=== PATIENT | male | born 1950 | race Two or more races ===

== ENCOUNTER 2018-02-07 12:39 | Emergency (ER) | payer OTHER ==
[~2018-02-07] VITALS: Ht 157.5 cm; Wt 113.4 kg
[~2018-02-07 12:39] MED LIST: Apresoline 20MG Vial IV; CARDIZEM CD 240 MG PO; CARVEDILOL3.125 MG; CLONAZEPAM1 MG; COREG CR10 MG; COUMADIN1 MG PO; COUMADIN5 MG; COUMADIN5 MG PO; COUMAdin PO; Coreg PO; DIGOXIN125 MCG; HALOPERIDOL2 MG; LASIX20 MG PO; LEVOTHYROXINE200 MCG PO; TENORMIN100 MG; TOPROL XL100 MG; TRAMADOL HCL50 MG; Toprol Xl 50MG TAB PO; ZYLOPRIM300 MG
== END 2018-02-07 18:18 | disposition home or self-care (01) ==
LOC: ER 12:39
DX: G89.11 Acute pain due to trauma (principal); M54.5 Low back pain; R10.32 Left lower quadrant pain; J11.1 Influenza due to unidentified influenza virus with other respiratory manifestations

== ENCOUNTER 2018-03-21 10:14 | Emergency (ER) | payer OTHER ==
[~2018-03-21] VITALS: Ht 190.5 cm; Wt 113.4 kg
[2018-03-21] MEDS ORDERED: TUSSI PRES-B L120 M1 PO (14:09)
[2018-03-21] MEDS ORDERED: TESSALON PERLE100 MG PO (14:09)
[2018-03-21] MEDS ORDERED: AMOX1TAB5 PO (14:11)
== END 2018-03-21 14:13 | disposition home or self-care (01) ==
LOC: ER 10:14
DX: B34.9 Viral infection, unspecified (principal); J11.1 Influenza due to unidentified influenza virus with other respiratory manifestations

== ENCOUNTER 2018-09-01 12:09 | Inpatient (IN) | payer OTHER ==
[~2018-09-01] VITALS: Ht 190.5 cm; Wt 104.3 kg
[~2018-09-01 12:09] MED LIST changes: +AMOX1TAB5 PO; +TESSALON PERLE100 MG PO; +TUSSI PRES-B L120 M1 PO
[2018-09-01] MEDS ORDERED: BUDESONIDE0.5 GM IH (12:36)
[2018-09-01] MEDS ORDERED: XOPENEX0.63 MG/3 IH (12:37)
== END 2018-09-07 13:35 | DRG 194 ==
LOC: ER 12:09 → MEDJ 20:24
PROVIDERS: ADMIT Internal Medicine
PROC: 3E0F7GC Introduction of Other Therapeutic Substance into Respiratory Tract, Via Natural or Artificial Opening (ICD-10-PCS; principal; 2018-09-01)
PROC: 4A033R1 Measurement of Arterial Saturation, Peripheral, Percutaneous Approach (ICD-10-PCS; 2018-09-01)
DX: J10.00 Influenza due to other identified influenza virus with unspecified type of pneumonia (principal); J98.11 Atelectasis; J44.1 Chronic obstructive pulmonary disease with (acute) exacerbation; I50.9 Heart failure, unspecified; I11.0 Hypertensive heart disease with heart failure; I48.2 Chronic atrial fibrillation; Z79.01 Long term (current) use of anticoagulants; E03.8 Other specified hypothyroidism; G47.33 Obstructive sleep apnea (adult) (pediatric); I12.9 Hypertensive chronic kidney disease with stage 1 through stage 4 chronic kidney disease, or unspecified chronic kidney disease; N18.2 Chronic kidney disease, stage 2 (mild)

== ENCOUNTER 2018-11-21 12:48 | Emergency (ER) | payer OTHER ==
[~2018-11-21] VITALS: Ht 190.5 cm; Wt 108.9 kg
[~2018-11-21 12:48] MED LIST changes: +BUDESONIDE0.5 GM IH; +XOPENEX0.63 MG/3 IH
[2018-11-21] MEDS ORDERED: LIPITOR20 MG PO (13:36)
[2018-11-21] MEDS ORDERED: CARDIZEM CD180 M1 PO (13:36)
[2018-11-21] MEDS ORDERED: XARELTO20 MG PO (13:39)
[2018-11-21] MEDS ORDERED: ZOLOFT25 MG PO (13:40)
[2018-11-21] MEDS ORDERED: SYNTHROID88 MCG PO (13:41)
[2018-11-21] MEDS ORDERED: BACLOFEN10 MG PO (13:41)
== END 2018-11-21 16:22 | disposition home or self-care (01) ==
LOC: ER 12:48
DX: J11.1 Influenza due to unidentified influenza virus with other respiratory manifestations (principal)

== ENCOUNTER 2020-11-22 10:16 | Inpatient (IN) | payer OTHER ==
[~2020-11-22] VITALS: Ht 188 cm
[~2020-11-22 10:16] MED LIST changes: +BACLOFEN10 MG PO; +CARDIZEM CD180 M1 PO; +LIPITOR20 MG PO; +SYNTHROID88 MCG PO; +XARELTO20 MG PO; +ZOLOFT25 MG PO
[2020-11-22] MEDS ORDERED: FOLIC ACID1 MG PO (10:25)
[2020-11-22] MEDS ORDERED: AMIODARONE HCL200 MG NGT (10:26)
[2020-11-22] MEDS ORDERED: FUROSEMIDE40 MG PO (10:26)
[2020-12-04] MEDS ORDERED: ELIQUIS5 MG PO (15:43)
[2020-12-04] MEDS ORDERED: DILTIAZEM ER120 M2 PO (15:44)
[2020-12-04] MEDS ORDERED: TAMS0.4C PO (19:14)
== END 2020-12-04 21:56 | disposition home or self-care (01) | DRG 378 ==
LOC: ER 10:16 → ICU-2 18:53 → ICU 18:53 → SURH 11-28 18:57
PROVIDERS: ADMIT Internal Medicine; ATTEND Internal Medicine
PROC: 3E0F7SF Introduction of Other Gas into Respiratory Tract, Via Natural or Artificial Opening (ICD-10-PCS; 2020-11-22)
PROC: 30233N1 Transfusion of Nonautologous Red Blood Cells into Peripheral Vein, Percutaneous Approach (ICD-10-PCS; principal; 2020-11-23)
PROC: 0DJ08ZZ Inspection of Upper Intestinal Tract, Via Natural or Artificial Opening Endoscopic (ICD-10-PCS; 2020-11-26)
PROC: 0DBM8ZX Excision of Descending Colon, Via Natural or Artificial Opening Endoscopic, Diagnostic (ICD-10-PCS; 2020-11-27)
PROC: 0DBN8ZX Excision of Sigmoid Colon, Via Natural or Artificial Opening Endoscopic, Diagnostic (ICD-10-PCS; 2020-11-27)
PROC: 4A12X4Z Monitoring of Cardiac Electrical Activity, External Approach (ICD-10-PCS; 2020-11-29)
DX: K62.5 Hemorrhage of anus and rectum (principal); I48.20 Chronic atrial fibrillation, unspecified; I13.0 Hypertensive heart and chronic kidney disease with heart failure and stage 1 through stage 4 chronic kidney disease, or unspecified chronic kidney disease; N39.0 Urinary tract infection, site not specified; N17.8 Other acute kidney failure; I69.351 Hemiplegia and hemiparesis following cerebral infarction affecting right dominant side; D12.5 Benign neoplasm of sigmoid colon; D64.9 Anemia, unspecified; D12.4 Benign neoplasm of descending colon; E03.8 Other specified hypothyroidism; E11.22 Type 2 diabetes mellitus with diabetic chronic kidney disease; N18.9 Chronic kidney disease, unspecified; I50.9 Heart failure, unspecified; G47.33 Obstructive sleep apnea (adult) (pediatric); Z20.822 Contact with and (suspected) exposure to COVID-19; Z79.01 Long term (current) use of anticoagulants

== ENCOUNTER 2021-08-03 11:08 | Emergency (ER) | payer OTHER ==
[~2021-08-03] VITALS: Ht 188 cm; Wt 117.9 kg
[~2021-08-03 11:08] MED LIST changes: +AMIODARONE HCL200 MG NGT; +DILTIAZEM ER120 M2 PO; +ELIQUIS5 MG PO; +FOLIC ACID1 MG PO; +FUROSEMIDE40 MG PO; +TAMS0.4C PO
== END 2021-08-03 19:34 | disposition home or self-care (01) ==
LOC: ER 11:08
DX: R07.89 Other chest pain (principal); I48.91 Unspecified atrial fibrillation; R06.02 Shortness of breath; I11.0 Hypertensive heart disease with heart failure; I50.814 Right heart failure due to left heart failure; N17.9 Acute kidney failure, unspecified; I25.10 Atherosclerotic heart disease of native coronary artery without angina pectoris

== ENCOUNTER 2022-06-09 13:48 | Emergency (ER) | payer OTHER ==
[~2022-06-09] VITALS: Ht 175.3 cm; Wt 104.3 kg
== END 2022-06-09 19:33 | disposition home or self-care (01) ==
LOC: ER 13:48
DX: U07.1 COVID-19 (principal); J10.1 Influenza due to other identified influenza virus with other respiratory manifestations

== ENCOUNTER 2022-11-14 11:50 | Emergency (ER) | payer OTHER ==
[~2022-11-14] VITALS: Ht 188 cm; Wt 122.5 kg
[2022-11-14] MEDS ORDERED: LASIX40 MG PO (12:16)
[2022-11-14] MEDS ORDERED: PROTONIX40 MG PO (12:17)
== END 2022-11-14 15:32 | disposition home or self-care (01) ==
LOC: ER 11:50
DX: M43.6 Torticollis (principal); W18.2XXA Fall in (into) shower or empty bathtub, initial encounter; Y93.9 Activity, unspecified; Y92.012 Bathroom of single-family (private) house as the place of occurrence of the external cause; Y99.9 Unspecified external cause status

== ENCOUNTER 2023-04-11 19:20 | Emergency (ER) | payer OTHER ==
[~2023-04-11] VITALS: Ht 167.6 cm; Wt 113.4 kg
[~2023-04-11 19:20] MED LIST changes: +ALLOPURINOL100 MG PO; +LASIX40 MG PO; +PROTONIX40 MG PO
[2023-04-12 00:40] LABS: ABG PH 7.455 (7.35-7.45); ABG pCO2 29.5 mmHg (35-45); BASE EXCESS -2.3 mmol/l; BICARBONATE 20.3 mmol/l (23-25); Tco2 21.2 mmol/l
[2023-04-12 01:19] LABS: HEMATOCRIT 40.3 % (39.0-48.0); MEAN CELL VOLUME 70.1 fL (80.0-100.00); MEAN CORPUSCULAR HEMOGLOBIN 22.4 pg (27.00-32.0); MEAN CORPUSCULAR HGB CONC 31.9 g/dl (32.0-36.0); PLATELET COUNT 214 K/uL (150-450); RED BLOOD COUNT 5.75 M/uL (4.00-6.00)
[2023-04-12 01:23] LABS: HEMOGLOBIN 12.9 g/dL (13-16.00)
[2023-04-12 01:29] LABS: CALCIUM 8.2 mg/dL (8.5-10.1); CREATININE SERUM 2.03 mg/dL (0.70-1.30); GFR 32.54; POTASSIUM 3.33 mEq/L (3.5-5.1)
[2023-04-12 06:45] LABS: allen test SATISFACTORY; o2 21 %; puncture site RADIAL LEFT
== END 2023-04-12 03:21 | disposition home or self-care (01) ==
LOC: ER 19:21
PROVIDERS: General Practice
DX: J11.1 Influenza due to unidentified influenza virus with other respiratory manifestations (principal); Z20.822 Contact with and (suspected) exposure to COVID-19

== ENCOUNTER 2024-11-09 16:53 | Inpatient (IN) | payer OTHER ==
[~2024-11-09] VITALS: Ht 175.3 cm; Wt 145.1 kg
--- NOTE | 2024-11-09 17:06 | NUR ---
SE RECIBE PACIENTE ALERTA Y ORIENTADO QUIEN REFIERE VENIR A CAUSA DE DOLOR EN EL CUERPO. AL MOMENTO PACIENTE SE ENCUENTRA CON HBP. PACIENTE AL MOMENTO PRESENTA 180/100. SE REALIZA EKG Y SE MIDEN S/V.
[2024-11-09] MEDS ORDERED: 0.9 % SODIUM CHLORIDE 1,000 ML IV ONE (17:30)
[2024-11-09] MEDS ORDERED: LEVALBUTEROL HCL 1.25 MG/3 ML SOLUTION IH ONE (17:30)
[2024-11-09] MEDS ORDERED: FUROsemide 20 MG/2 ML VIAL IV ONE (17:30)
[2024-11-09] MEDS ORDERED: FAMOtidine 10 MG/ML (4ML VIAL) IV ONE (17:30)
[2024-11-09] MEDS ORDERED: NIFEDIPINE 10 MG CAPSULE PO ONE (17:30)
[2024-11-09] MEDS ORDERED: PIPERACILLIN/TAZOBACTAM SODIUM 3.375 GM VIAL IV ONE (17:30)
--- NOTE | 2024-11-09 17:53 | NUR ---
WHIT ISSAS EJECUTA ORDENES MEDICAS EN TRUONG TOTALIDAD.
[2024-11-09 18:01] LABS: BASO % 0.4 % (0.1-1.2); EOS # 0.01 (0.04-0.54); EOS % 0.1 % (0.7-7.0); HEMATOCRIT 35.4 % (40.1-51.0); HEMOGLOBIN 10.8 g/dL (13.7-17.5); LYMPH # 0.54 (1.18-3.74); LYMPH % 5.7 % (19.3-53.1); MEAN CORPUSCULAR HEMOGLOBIN 21.1 pg (25.6-32.2); MONO # 0.48 (0.24-0.82); NEUT # 8.39 (1.56-6.13); NEUT % 88.2 % (34.0-71.1); PLATELET COUNT 245 K/uL (163-369); RED BLOOD COUNT 5.12 M/uL (4.63-6.08); RED CELL DISTRIBUTION WIDTH 20.8 % (11.6-14.4)
[2024-11-09 18:13] LABS: INR 1.23; PARTIAL THROMBOPLASTIN TIME 35.6 SECONDS (22.0-34.0); PROTHROMBIN TIME 13.2 SECONDS (9.0-11.5)
[2024-11-09 18:21] LABS: ALBUMIN 3.6 gm/dL (3.4-5.0); BILIRUBIN TOTAL 1.49 mg/dL (0.3-1.2); CALCIUM 8.2 mg/dL (8.5-10.1); CREATININE SERUM 1.41 mg/dL (0.70-1.30); GFR 49.41; GLOBULINA 4.2 G/DL (2.4-3.5); POTASSIUM 3.44 mEq/L (3.5-5.1); TOTAL PROTEIN 7.8 gm/dL (6.4-8.2)
[2024-11-09 19:14] LABS: PH,URINE 6.5 (5.0-8.0); URINE APPEARANCE Clear; URINE BILIRRUBIN Negative (NEGATIVE); URINE BLOOD Negative; URINE COLOR Yellow; URINE GLUCOSE Negative (NEGATIVE); URINE KETONE Negative (NEGATIVE); URINE LEUKOCYTE Negative; URINE NITRATE Negative; URINE PROTEIN Trace (NEGATIVE)
[2024-11-09 19:17] LABS: URINE BACTERIA 6.1 uL (0.0-1933); URINE RBC 12.5 uL (0.0-20.8); URINE WBC 2.2 uL (0.0-23.2)
[2024-11-09 19:20] LABS: URINE CAST 0.14 uL (0.0-1.40); URINE EPITHELIAL CELLS 0.4 uL (0.0-38.8)
[2024-11-09 20:54] LABS: ABG pCO2 28.9 mmHg (35-45); BASE EXCESS -1.1 mmol/l; BICARBONATE 21.1 mmol/l (23-25); SaO2 97.1 %; Tco2 21.9 mmol/l
[2024-11-09 22:03] LABS: allen test SATISFACTORY; mode NASAL CANNULA; o2 32 %; puncture site RADIAL LEFT
[2024-11-09] MEDS ORDERED: NITROGLYCERIN IN 5 % DEXTROSE 250 ML IV SCH (23:09)
--- NOTE | 2024-11-10 00:32 | NUR ---
SE RECIBE PACIENTE A AREA DE CRITICO DESDE AREA DE OBSERVACION. SE CONECTA A MONITOR CARIDACO Y OXIMETRIA DE PULSO CONTINUA. PACIENTE CON CANULA NASAL A 3L. SE ADMINISTRAN MEDICAMENTOS AMI ORDEN MEDICA. SE MANTIENE EN OBSERVACION POR CAMBIOS SIGNIFICATIVOS EN TRUONG CONDICION. PENDIENTE CONSULTAS.
[2024-11-10] MEDS ORDERED: FUROsemide 40 MG/4 ML VIAL IV SCH (09:00)
--- NOTE | 2024-11-10 09:07 | NUR ---
SE RECIBE PTE ALERTA Y ORIENTADO X3 EN CAMA BAJA Y BARANDAS ELEVADAS POR TRUONG SEGURIDAD EN UNIDAD DE ICU-2 BAJO EL CUIDADO DE RN BALDWIN. PTE SE OBSERVA RECIBIENDO ASISTENCIA RESPIRATORIA POR N/C @ 3LT. PTE CON EXTREMIDADES SUPERIOIRES LIBRES DE EDEMA Y ERITEMA CON CANALIZACIONES EN AMBOS BRAZOS POR LOS CUALES ESTA RECIBIEDNO DRIP DE TRIDIL @ 3ML/HR E INFUSION DE 0.9% NSS @ 40ML/HR. PTE CONECTADO A MONITOR CARDIACO Y OXYMETRIA DE PULSO. PTE CON ABDOMEN RETRAIBLE AL TACTO CON PERISTALSIS PRESENTE. SE OBSERVA SONDA URINARIA BENZ BAJANDO A GRAVEDAD CON ORINA RECOLECTADA AMARILLO INTENSO. LAS EXTREMIDADES INFERIORES SE OBSERVAN LIBRES DE EDEMA Y ERITEMA.
--- NOTE | 2024-11-10 10:30 | NUR ---
SE NOTIFICA A PERSONAL DE MEDICINANGONZALO GUADALUPE PARA EL ECHO/DOPPLER PENDIENTE.
[2024-11-10] MEDS ORDERED: DILTIAZEM HCL 120 MG TABLET PO SCH (10:36)
[2024-11-10] MEDS ORDERED: FAMOTIDINE/PF 20 MG/2 ML VIAL IV SCH (10:38)
[2024-11-10] MEDS ORDERED: DILTIAZEM HCL 120 MG CAP.SR.24H PO SCH (10:44)
[2024-11-10] MEDS ORDERED: POTASSIUM BICARBONATE/CIT AC 25 MEQ TABLET.EFF PO ONE (10:45)
[2024-11-10] MEDS ORDERED: NITROGLYCERIN IN 5 % DEXTROSE 250 ML IV SCH (11:00)
[2024-11-10 11:12] LABS: ABG PH 7.485 (7.35-7.45); ABG PO2 68.8 mmHg (80-100); ABG pCO2 32.2 mmHg (35-45); BASE EXCESS 1.1 mmol/l; BICARBONATE 23.7 mmol/l (23-25); Tco2 24.7 mmol/l
[2024-11-10] MEDS ORDERED: IRON FUM,PS/FOLIC/BCOMP,C NO.9 1 CAP CAPSULE PO SCH (11:14)
[2024-11-10 12:32] LABS: TSH 3.8 uIU/mL (0.358-3.74)
[2024-11-10 12:36] LABS: C-REACTIVE PROTEIN 9.69 MG/DL (0.00-0.29)
[2024-11-10] MEDS ORDERED: RIVAROXABAN 15 MG TABLET PO SCH ×2 (13:16→17:00)
[2024-11-10 13:32] LABS: allen test SATISFACTORY; mode ROOM AIR; o2 21 %; puncture site RADIAL LEFT
[2024-11-10 13:59] LABS: INFLUENZA A AG NEGATIVE (NEGATIVE)
[2024-11-10 14:04] LABS: COVID-19 AG NEGATIVE (NEGATIVE)
[2024-11-10 15:15] VITALS: BP 135/70; O2SAT 96
[2024-11-10 16:00] VITALS: BP 121/73; O2SAT 97
[2024-11-10] MEDS ORDERED: OSELTAMIVIR PHOSPHATE 75 MG CAPSULE PO SCH (17:00)
[2024-11-10 18:00] VITALS: BP 115/85; O2SAT 96
[2024-11-10 19:00] VITALS: BP 131/78; O2SAT 96
[2024-11-10 21:29] VITALS: BP 142/84; O2SAT 96
[2024-11-10] MEDS ORDERED: LEVALBUTEROL HCL 0.63 MG/3 ML SOLUTION IH SCH (21:42)
[2024-11-10 23:30] VITALS: BP 126/75; O2SAT 98
[2024-11-11] VITALS (24 sets, daily range): BP systolic 100–171; BP diastolic 54–99; O2SAT 91–100
[2024-11-11] MEDS ORDERED: LEVOTHYROXINE SODIUM 88 MCG TABLET PO SCH (06:00)
[2024-11-11 08:01] LABS: BASO % 0.4 % (0.1-1.2); EOS # 0.03 (0.04-0.54); EOS % 0.4 % (0.7-7.0); HEMATOCRIT 33.6 % (40.1-51.0); HEMOGLOBIN 10.3 g/dL (13.7-17.5); LYMPH % 16.4 % (19.3-53.1); MEAN CORPUSCULAR HEMOGLOBIN 20.7 pg (25.6-32.2); NEUT # 5.15 (1.56-6.13); NEUT % 70.4 % (34.0-71.1); PLATELET COUNT 242 K/uL (163-369); RED BLOOD COUNT 4.97 M/uL (4.63-6.08); RED CELL DISTRIBUTION WIDTH 20.5 % (11.6-14.4)
[2024-11-11 08:58] LABS: MONO % 12.3 % (4.7-12.5)
[2024-11-11 08:59] LABS: ALBUMIN 3.3 gm/dL (3.4-5.0); BILIRUBIN TOTAL 1.31 mg/dL (0.3-1.2); CALCIUM 7.9 mg/dL (8.5-10.1); CREATININE SERUM 1.31 mg/dL (0.70-1.30); GFR 53.79; GLOBULINA 3.6 G/DL (2.4-3.5); MAGNESIUM 1.9 mg/dL (1.8-2.4); PHOSPHOROUS 3.2 mg/dL (2.5-4.9); POTASSIUM 3.62 mEq/L (3.5-5.1); T4 FREE 1.03 NG/ML (0.76-1.46); TOTAL PROTEIN 6.9 gm/dL (6.4-8.2)
[2024-11-11] MEDS ORDERED: DILTIAZEM HCL 120 MG CAP.SR.24H PO SCH ×2 (09:00→17:00)
[2024-11-11] MEDS ORDERED: ALLOPURINOL 100 MG TABLET PO SCH (09:00)
[2024-11-11] MEDS ORDERED: ATORVASTATIN CALCIUM 20 MG TABLET PO SCH (09:00)
[2024-11-11] MEDS ORDERED: ACETAMINOPHEN 500 MG GEL..CAP PO PRN (11:30)
[2024-11-11] MEDS ORDERED: AMIODARONE HCL 50 MG/ML AMPUL IV NR (12:30)
[2024-11-11] MEDS ORDERED: AMIODARONE HCL 50 MG/ML AMPUL IV ONE (12:30)
[2024-11-11] MEDS ORDERED: AMIODARONE HCL 900 MG in DEXTROSE 5 % IN WATER 500 ML IV SCH ×2 (12:30→18:30)
[2024-11-11] MEDS ORDERED: METOPROLOL SUCCINATE 25 MG TAB.SR.24H PO SCH (16:02)
[2024-11-11] MEDS ORDERED: FUROsemide 20 MG/2 ML VIAL IV SCH (21:00)
[2024-11-12] VITALS (18 sets, daily range): BP systolic 103–155; BP diastolic 62–99; O2SAT 95–100
[2024-11-12] MEDS ORDERED: METOPROLOL SUCCINATE 25 MG TAB.SR.24H PO STA (12:08)
[2024-11-12] MEDS ORDERED: ISOSORBIDE DINITRATE 20 MG TABLET PO SCH (13:00)
[2024-11-13] VITALS (9 sets, daily range): BP systolic 122–129; BP diastolic 50–88; O2SAT 90–98
[2024-11-13] MEDS ORDERED: METOPROLOL SUCCINATE 50 MG TAB.SR.24H PO SCH (09:00)
[2024-11-13] MEDS ORDERED: DILTIAZEM HCL 120 MG CAP.SR.24H PO SCH (09:00)
[2024-11-13 09:26] LABS: ABG PH 7.462 (7.35-7.45); ABG PO2 93.7 mmHg (80-100); ABG pCO2 29.8 mmHg (35-45); BASE EXCESS -1.8 mmol/l; BICARBONATE 20.8 mmol/l (23-25); SaO2 97.7 %; Tco2 21.7 mmol/l; allen test SATISFACTORY; mode ROOM AIR; o2 21 %; puncture site RADIAL RIGHT
[2024-11-13 09:49] LABS: ALBUMIN 3.4 gm/dL (3.4-5.0); BILIRUBIN TOTAL 1.28 mg/dL (0.3-1.2); CALCIUM 8.4 mg/dL (8.5-10.1); CREATININE SERUM 1.86 mg/dL (0.70-1.30); GFR 35.89; MAGNESIUM 2.4 mg/dL (1.8-2.4); PHOSPHOROUS 4.5 mg/dL (2.5-4.9); POTASSIUM 3.83 mEq/L (3.5-5.1); TOTAL PROTEIN 7.4 gm/dL (6.4-8.2)
[2024-11-13 09:57] LABS: HEMATOCRIT 36.2 % (40.1-51.0); HEMOGLOBIN 10.8 g/dL (13.7-17.5); MEAN CORPUSCULAR HEMOGLOBIN 20.4 pg (25.6-32.2); PLATELET COUNT 332 K/uL (163-369); RED BLOOD COUNT 5.29 M/uL (4.63-6.08); RED CELL DISTRIBUTION WIDTH 20.8 % (11.6-14.4)
[2024-11-13 09:58] LABS: BASO % 0.5 % (0.1-1.2); EOS # 0.12 (0.04-0.54); EOS % 1.6 % (0.7-7.0); LYMPH # 2.33 (1.18-3.74); LYMPH % 30.3 % (19.3-53.1); MONO # 0.96 (0.24-0.82); MONO % 12.5 % (4.7-12.5); NEUT # 4.21 (1.56-6.13); NEUT % 54.8 % (34.0-71.1)
[2024-11-14 00:19] VITALS: O2SAT 93
[2024-11-14 02:57] VITALS: BP 123/83; O2SAT 99
[2024-11-14 05:10] VITALS: O2SAT 99
[2024-11-14 08:00] VITALS: BP 160/78
[2024-11-14] MEDS ORDERED: FUROsemide 20 MG/2 ML VIAL IV SCH (09:00)
[2024-11-14 09:38] VITALS: O2SAT 95
[2024-11-14 10:33] LABS: ALBUMIN 3.2 gm/dL (3.4-5.0); BILIRUBIN TOTAL 1.06 mg/dL (0.3-1.2); CALCIUM 8.2 mg/dL (8.5-10.1); CREATININE SERUM 1.53 mg/dL (0.70-1.30); GFR 44.96; POTASSIUM 4.1 mEq/L (3.5-5.1); TOTAL PROTEIN 7.2 gm/dL (6.4-8.2)
[2024-11-14] MEDS ORDERED: OSEL75CA PO (13:21)
[2024-11-14] MEDS ORDERED: XARELTO15 MG PO (13:21)
[2024-11-14] MEDS ORDERED: INTEGRA PLUS C1 EACH PO (13:21)
[2024-11-14] MEDS ORDERED: DILTIAZEM ER120 M2 PO (13:22)
[2024-11-14] MEDS ORDERED: LIPITOR20 MG PO (13:22)
[2024-11-14] MEDS ORDERED: LASIX20 MG PO (13:22)
[2024-11-14] MEDS ORDERED: ZYLOPRIM100 M1 PO (13:23)
[2024-11-14] MEDS ORDERED: LEVOTHYROXINE88 MCG PO (13:23)
== END 2024-11-14 13:55 | disposition home or self-care (01) | DRG 291 ==
LOC: ER 16:53 → ICU-2 11-10 12:14 → ICU 11-10 12:14 → MEDJ 11-12 22:30
PROVIDERS: General Practice; Internal Medicine; ADMIT Internal Medicine; ATTEND Internal Medicine
PROC: BW28ZZZ Computerized Tomography (CT Scan) of Head (ICD-10-PCS; 2024-11-09)
PROC: BW24ZZZ Computerized Tomography (CT Scan) of Chest and Abdomen (ICD-10-PCS; 2024-11-09)
PROC: B24BZZZ Ultrasonography of Heart with Aorta (ICD-10-PCS; 2024-11-10)
PROC: 4A12X4Z Monitoring of Cardiac Electrical Activity, External Approach (ICD-10-PCS; principal; 2024-11-12)
DX: I13.0 Hypertensive heart and chronic kidney disease with heart failure and stage 1 through stage 4 chronic kidney disease, or unspecified chronic kidney disease (principal); I50.23 Acute on chronic systolic (congestive) heart failure; N17.9 Acute kidney failure, unspecified; I69.351 Hemiplegia and hemiparesis following cerebral infarction affecting right dominant side; D64.9 Anemia, unspecified; J10.1 Influenza due to other identified influenza virus with other respiratory manifestations; E87.6 Hypokalemia; I95.89 Other hypotension; N18.9 Chronic kidney disease, unspecified; I25.10 Atherosclerotic heart disease of native coronary artery without angina pectoris; E03.9 Hypothyroidism, unspecified; E78.5 Hyperlipidemia, unspecified; G47.33 Obstructive sleep apnea (adult) (pediatric); I48.91 Unspecified atrial fibrillation; M10.9 Gout, unspecified